=== PATIENT | female | born 1980 | race Caucasian/White ===

== ENCOUNTER 2021-09-12 17:21 | Emergency (ER) | payer OTHER ==
[2021-09-12 18:14] VITALS: BP 107/71
== END 2021-09-12 19:56 | disposition left against medical advice (07) ==
LOC: ED 17:21
DX: Z00.00 Encounter for general adult medical examination without abnormal findings (principal); Z53.21 Procedure and treatment not carried out due to patient leaving prior to being seen by health care provider; R58 Hemorrhage, not elsewhere classified

== ENCOUNTER 2022-02-14 15:20 | Outpatient (CLI) | payer OTHER ==
[2022-02-14] MEDS ORDERED: LACTATED RINGERS 500 ML IV ONE (15:58)
--- NOTE | 2022-02-14 17:06 | Ultrasound Report ---
ULTRASOUND OBSTETRIC LIMITED ULTRASOUND BIOPHYSICAL PROFILE INDICATION / CLINICAL INFORMATION: patience. COMPARISON: None available. FINDINGS: BREATHING MOVEMENT = 2 GROSS BODY MOVEMENT = 2 TONE = 2 QUALITATIVE AMNIOTIC FLUID VOLUME = 2 TOTAL BIOPHYSICAL SCORE = 8/8 AMNIOTIC FLUID INDEX (cm) = 13.5 PRESENTATION: Cephalic. HEART RATE (beats per minute): 136 ADDITIONAL FINDINGS: None. IMPRESSION: 1. Biophysical Score = 8/8 Signer Name: Ivan Currie MD Signed: 02/14/2022 5:02 PM Workstation Name: [id number]
== END 2022-02-14 17:35 | disposition home or self-care (01) ==
LOC: TRG 15:20 → APU 15:23 → TRG 17:35
PROVIDERS: ATTEND Student in an Organized Health Care Education/Training Program
DX: O36.8330 Maternal care for abnormalities of the fetal heart rate or rhythm, third trimester, not applicable or unspecified (principal); Z3A.33 33 weeks gestation of pregnancy
CPT/HCPCS: 59025; 76815; 76819